=== PATIENT | male | born 1980 | race Caucasian/White ===

== ENCOUNTER 2022-10-05 22:46 | Inpatient (IN) | payer OTHER ==
[2022-10-05] MEDS ORDERED: MIDAZOLAM HCL 2 MG/2 ML SINGLE DOSE VIAL ONE (23:27)
[2022-10-05] MEDS ORDERED: MIDAZOLAM HCL 2 MG/2 ML SINGLE DOSE VIAL IVPUSH ONE (23:30)
[2022-10-05] MEDS ORDERED: SODIUM CHLORIDE 0.9% 500 ML INFUS.BAG IV ONE (23:34)
[2022-10-05] MEDS ORDERED: LORazepam 2 MG/ML SDV VIAL IVPUSH SCH (23:45)
[2022-10-05] MEDS ORDERED: levETIRAcetam 500 MG/5 ML INJECTION VIAL IVPB ONE ×2 (23:48)
[2022-10-06 00:22] LABS: URINE APPEARANCE CLEAR; URINE BILIRUBIN NEGATIVE (NEGATIVE); URINE COLOR YELLOW; URINE GLUCOSE (UA) NEGATIVE (NEGATIVE); URINE KETONE NEGATIVE (NEGATIVE); URINE LEUK ESTERASE NEGATIVE (NEGATIVE); URINE NITRITE NEGATIVE (NEGATIVE); URINE PROTEIN NEGATIVE (NEGATIVE); URINE UROBILINOGEN 0.2 mg/dL (0.2-1.0)
[2022-10-06 00:23] LABS: BASO % 0.1 % (0-2.0); EOS % 1.2 % (0-4.5); HEMATOCRIT 44.2 % (35.4-49); HEMOGLOBIN 15.3 GM/dL (11.7-16.9); LYMPH % 17.1 % (8-40); MCHC 34.6 g/dl (32.0-35.9); MEAN CELL VOLUME 86.6 fl (80-96); MEAN PLT VOLUME 8.9 fl (7.5-11.1); NEUT % 77.6 % (42.8-82.8); PLATELET COUNT 203 10^3/uL (134-434); RBC 5.11 M/mm3 (4.00-5.60); RDW 13.1 % (11.9-15.9); WHITE BLOOD COUNT 9.7 K/mm3 (4.0-10.0)
[2022-10-06 00:34] LABS: INR 0.98 (0.83-1.09); PROTHROMBIN TIME (PATIENT) 11.4 SEC (9.7-13.0)
[2022-10-06 00:39] LABS: CHLORIDE 103 mmol/L (98-107); POTASSIUM 3.4 mmol/L (3.5-5.1); SODIUM 139 mmol/L (136-145)
[2022-10-06 00:42] LABS: ALBUMIN 4.1 g/dl (3.4-5.0); ANION GAP 9 MMOL/L (8-16); BLOOD UREA NITROGEN 16.8 mg/dL (7-18); CO2 27 mmol/L (21-32); GLUCOSE,RANDOM 150 mg/dL (74-106); MAGNESIUM 1.9 mg/dL (1.8-2.4)
[2022-10-06 00:45] LABS: CREATININE 1.1 mg/dL (0.55-1.3); SGOT/AST 27 U/L (15-37); SGPT/ALT 38 U/L (13-61)
[2022-10-06 00:47] LABS: BILIRUBIN,TOTAL 0.2 mg/dL (0.2-1); TOT PROT 7.6 g/dl (6.4-8.2)
[2022-10-06 00:48] LABS: ALK PHOS 97 U/L (45-117)
[2022-10-06 00:49] LABS: COCAINE, UR NEGATIVE (NEGATIVE); METHADONE, UR NEGATIVE (NEGATIVE); OPIATES, URI NEGATIVE (NEGATIVE); PHENCYCLIDINE,URINE NEGATIVE (NEGATIVE); URINE AMPHETAMINES NEGATIVE (NEGATIVE); URINE BARBITURATES NEGATIVE (NEGATIVE); URINE BENZODIAZEPINES NEGATIVE (NEGATIVE)
[2022-10-06 00:49] LABS: LACTIC ACID 2.3 mmol/L (0.4-2.0)
[2022-10-06] MEDS ORDERED: POTASSIUM PHOSPHATE 30 MM in SODIUM CHLORIDE 500 ML IVPB ONE (01:55)
[2022-10-06 02:56] LABS: LACTIC ACID 2.6 mmol/L (0.4-2.0)
[2022-10-06] MEDS ORDERED: LACTATED RINGERS SOLUTION 1,000 ML/1,000 ML INFUS.BAG IV STA (03:04)
[2022-10-06 05:17] VITALS: BMI 27.8
[2022-10-06 07:26] LABS: HEMATOCRIT 40.9 % (35.4-49); HEMOGLOBIN 14.1 GM/dL (11.7-16.9); MCH 30.3 pg (25.7-33.7); MCHC 34.4 g/dl (32.0-35.9); MEAN PLT VOLUME 9.2 fl (7.5-11.1); PLATELET COUNT 197 10^3/uL (134-434); RBC 4.65 M/mm3 (4.00-5.60); RDW 12.9 % (11.9-15.9); WHITE BLOOD COUNT 8.8 K/mm3 (4.0-10.0)
[2022-10-06 07:37] LABS: POTASSIUM 3.9 mmol/L (3.5-5.1)
[2022-10-06 07:43] LABS: ALBUMIN 3.6 g/dl (3.4-5.0); BLOOD UREA NITROGEN 13.4 mg/dL (7-18); CALCIUM 8.6 mg/dL (8.5-10.1)
[2022-10-06 07:47] LABS: CREATININE 0.9 mg/dL (0.55-1.3)
[2022-10-06 07:48] LABS: BILIRUBIN,TOTAL 0.2 mg/dL (0.2-1); TOT PROT 6.6 g/dl (6.4-8.2)
[2022-10-06] MEDS: ENOXAPARIN NA (PORCINE) 40 MG/0.4 ML DISP.SYRIN SQ SCH (09:51)
[2022-10-06] MEDS ORDERED: levETIRAcetam 500 MG/5 ML INJECTION VIAL IVPB SCH (10:00)
[2022-10-06 12:14] LABS: CHOLESTEROL 179 mg/dL (50-200)
[2022-10-06 12:15] LABS: LDL CHOLESTEROL (ONLY SJRH) 106 mg/dL (5-100)
[2022-10-06 12:18] LABS: HDL CHOLESTEROL 38 mg/dL (40-60)
[2022-10-06 14:07] LABS: HIV INTERPRETATION NEGATIVE (NEGATIVE)
[2022-10-06 21:31] LABS: PHENCYCLIDINE,URINE NEGATIVE (NEGATIVE)
[2022-10-06 21:32] LABS: COCAINE, UR NEGATIVE (NEGATIVE); METHADONE, UR NEGATIVE (NEGATIVE); OPIATES, URI NEGATIVE (NEGATIVE); URINE AMPHETAMINES NEGATIVE (NEGATIVE); URINE BARBITURATES NEGATIVE (NEGATIVE)
[2022-10-06 21:38] LABS: URINE BENZODIAZEPINES POSITIVE (NEGATIVE)
[2022-10-06] MEDS: levETIRAcetam 500 MG TABLET (FP) PO SCH (22:57)
[2022-10-07] MEDS: levETIRAcetam 500 MG TABLET (FP) PO SCH ×2 (09:37→21:25)
[2022-10-07] MEDS: ENOXAPARIN NA (PORCINE) 40 MG/0.4 ML DISP.SYRIN SQ SCH (09:37)
[2022-10-07] MEDS ORDERED: LIDOCAINE VISCOUS 2% ORAL/TOP 15 ML UNIT-DOSE CUP MM PRN (11:21)
[2022-10-07] MEDS ORDERED: DEXAMETHASONE 2 MG TABLET PO SCH (15:30)
[2022-10-07] MEDS ORDERED: PANTOPRAZOLE 40 MG TABLET PO SCH (15:30)
[2022-10-08 07:06] LABS: HEMATOCRIT 45.7 % (35.4-49); HEMOGLOBIN 15.7 GM/dL (11.7-16.9); MCH 30.3 pg (25.7-33.7); MCHC 34.4 g/dl (32.0-35.9); MEAN PLT VOLUME 9.1 fl (7.5-11.1); PLATELET COUNT 226 10^3/uL (134-434); RBC 5.19 M/mm3 (4.00-5.60); RDW 12.9 % (11.9-15.9); WHITE BLOOD COUNT 10.8 K/mm3 (4.0-10.0)
[2022-10-08 07:31] LABS: POTASSIUM 4.2 mmol/L (3.5-5.1)
[2022-10-08 07:32] LABS: CALCIUM 9.5 mg/dL (8.5-10.1)
[2022-10-08 07:33] LABS: BLOOD UREA NITROGEN 15.3 mg/dL (7-18)
[2022-10-08 07:36] LABS: CREATININE 0.9 mg/dL (0.55-1.3)
[2022-10-08 08:57] VITALS: RESP 18
[2022-10-08] MEDS: levETIRAcetam 500 MG TABLET (FP) PO SCH (09:50)
[2022-10-08] MEDS: ENOXAPARIN NA (PORCINE) 40 MG/0.4 ML DISP.SYRIN SQ SCH (09:51)
[2022-10-08 14:17] VITALS: BP 124/79; PULSE 70; TEMP 97.8
== END 2022-10-08 17:45 | disposition home or self-care (01) | DRG 248 ==
LOC: JER 22:46 → JERBED 10-06 00:14 → J7W 10-06 04:37
PROVIDERS: ADMIT Internal Medicine; ATTEND Internal Medicine
DX: B69.0 Cysticercosis of central nervous system (principal); G93.6 Cerebral edema; R56.9 Unspecified convulsions; E87.20 Acidosis, unspecified; E87.6 Hypokalemia; S01.512A Laceration without foreign body of oral cavity, initial encounter; X58.XXXA Exposure to other specified factors, initial encounter; Y93.89 Activity, other specified; Y92.009 Unspecified place in unspecified non-institutional (private) residence as the place of occurrence of the external cause; Y99.8 Other external cause status
CPT/HCPCS: 0241U-QW; 36415; 70450-TC; 70552-TC; 71045-TC-FY; 80048; 80053; 80061; 80307; 81003; 82550; 82553; 82962; 83605; 83735; 84443; 84484; 85025; 85027; 85610; 85730; 86682; 86850; 86900; 86901; 87086; 87389; 93005; 93010; 99285-25; A9579